=== PATIENT | male | born 1950 | race Caucasian/White ===

== ENCOUNTER 2020-03-18 11:00 | Outpatient (CLI) | payer BC, SELFPAY | END 2020-03-18 12:00 | disposition home or self-care (01) | LOC: SLB 11:00 → EDSTATUS 03-25 11:45 | PROVIDERS: ATTEND Internal Medicine | DX: Z20.828 Contact with and (suspected) exposure to other viral communicable diseases (principal) | CPT/HCPCS: U0003-CS ==

== ENCOUNTER 2020-07-17 08:55 | Day surgery (SDC) | payer BC, SELFPAY ==
[2020-07-17] MEDS ORDERED: SIMETHICONE 40 MG/0.6 ML ML ONE (09:15)
[2020-07-17] MEDS: fentaNYL CITRATE/PF 100 MCG/2 ML AMP ONE ×3 (09:34→09:40)
[2020-07-17] MEDS: MIDAZOLAM HCL 5 MG/5 ML VIAL ONE ×4 (09:34→09:45)
[2020-07-17] MEDS ORDERED: fentaNYL CITRATE/PF 100 MCG/2 ML AMP ONE (09:42)
[2020-07-17] MEDS: DIPHENHYDRAMINE INJ 50 MG/ML VIAL ONE ×2 (09:50→09:56)
[2020-07-17 10:20] VITALS: BP_SYST 130
== END 2020-07-17 12:14 | disposition home or self-care (01) ==
LOC: SDS 08:55 → SMU 08:57 → SDS 12:14
PROVIDERS: ATTEND Internal Medicine
DX: R19.5 Other fecal abnormalities (principal); D12.2 Benign neoplasm of ascending colon; D12.5 Benign neoplasm of sigmoid colon; D12.3 Benign neoplasm of transverse colon; K62.1 Rectal polyp; I10 Essential (primary) hypertension; K57.30 Diverticulosis of large intestine without perforation or abscess without bleeding; Z20.828 Contact with and (suspected) exposure to other viral communicable diseases; Z86.010 Personal history of colon polyps; Z79.84 Long term (current) use of oral hypoglycemic drugs; Z79.899 Other long term (current) drug therapy
CPT/HCPCS: 45380; 45385; 82962; 88305; 99152; 99153; G0378; J1200; J2250; J3010; U0003